=== PATIENT | female | born 1945 | race Caucasian/White ===

== ENCOUNTER → 2021-11-03 | Outpatient (CLI) | payer MEDICARE, OTHER ==
[2021-11-03 10:14] LABS: HEMATOCRIT 33.8 % (37.0-47.0); MEAN CELL VOLUME 86 fl (80.0-100.0); MEAN CORPUSCULAR HEMOGLOBIN 28 pg (27.0-31.0); MEAN CORPUSCULAR HGB CONC 33 g/dl (33.0-37.0); PLATELET COUNT 238 K/mm3 (130-400); RED BLOOD COUNT 3.92 M/mm3 (4.10-5.30)
[2021-11-03 10:22] LABS: CALCIUM 9.4 mg/dL (8.4-10.2); CREATININE, serum 1.33 mg/dL (0.57-1.11); POTASSIUM 4.7 mmol/L (3.5-4.5)
[2021-11-03 10:30] LABS: INR 0.9 (0.8-3.0); PROTHROMBIN TIME 10.2 SECONDS (9.7-12.8)
[2021-11-03 10:51] LABS: LYMPHOCYTE 37 % (20.0-51.0); NEUTROPHILS 58 % (42.0-75.2); PLATELET ESTIMATE NORMAL (NORMAL)
[2021-11-03 10:52] LABS: OVALOCYTES 1+
== END ==
LOC: COL.LAB 09:25
DX: I50.30 Unspecified diastolic (congestive) heart failure (principal)